=== PATIENT | female | born 1995 | race Caucasian/White ===

== ENCOUNTER 2020-04-02 23:26 | Day surgery (SDC) | payer BC, OTHER ==
[2020-04-02 23:51] VITALS: BP 108/58; TEMP 98.5; BMI 27.2
[2020-04-03] MEDS ORDERED: hydrALAZINE 20 MG/ML VIAL SLOW IVP PRN (00:02)
--- NOTE | 2020-04-03 00:26 | PDOC.BPN ---
- Brief Progress Note OBGYN oncall: H&P Dictated. Patient seen by me at bedside. Patient in NAD. Sterile spec exam (SSE) explained by me. SSE performed without gel: No evidence of ROM. Valsalva and coufgh test both neg. Findings: Thick white adherent vag dsch C/W yeast. VP3 collected. Results back tomorrow. There is also a small inclusion cyst at intritus at 6 OClock...1cm, nt. I do not suspect ROM. This was discussed with her. I suspect vaginal yeast. This will be followed up tomorrow at her scheduled appt with Dr Geiger, to check VP3 results and RX then. NST reactive.
[2020-04-03 00:32] LABS: Amnisure Test No Membranes Rupture (No Rupture)
[2020-04-03 00:33] LABS: Amnisure Internal Control QC ACCEPTABLE (ACCEPTABLE)
--- NOTE | 2020-04-03 00:48 | HP ---
It is 0004 time of evaluation. Time of initial evaluation was 2354. LOCATION: Triage A. CHIEF COMPLAINT: Possible leakage of fluid/transfer from [facility]. HISTORY OF PRESENT ILLNESS: This is a 24-year-old, G2, P1, at 30 weeks and 1 day by an EDC of 06/10 with possible leakage of fluid at around 2039, which is why she went to [facility]. She is a patient of Dr. Geiger. She states that she had one small gush of fluid, but was unable to tell if she continues leaking at the other hospital. I did receive a phone call from the initial provider who was Dr. Santos at [facility], who checked her and called her "closed" and thought that she may be ruptured. She was sent here for evaluation. REVIEW OF SYSTEMS: GENERAL: No sick contacts. No fevers or chills. RESPIRATORY: No shortness of breath. CARDIOVASCULAR: No chest pain. GI: No constipation or diarrhea. EXTREMITIES: No lower extremity unusual edema or pain. PAST OBSTETRICAL HISTORY: She is a G2, P1, with a history of an appendectomy with her last , but she was able to deliver all the way at term. She had a vaginal . PAST MEDICAL HISTORY: History of seizure disorder for which she takes medication. MEDICATIONS: Include Keppra b.i.d. and vitamins. SURGICAL HISTORY: Appendectomy with previous , and tonsils and adenoids. SOCIAL HISTORY: Negative for alcohol, tobacco, and drug use. PHYSICAL EXAMINATION: VITAL SIGNS: Show blood pressure of 108/58, pulse of 96, temperature 98.5, respirations are 18 and nonlabored. GENERAL: No acute distress. ABDOMEN: Gravid, soft, and nontender. Abdomen is gravid and appears size consistent with dates. PELVIC: No gross evidence of vaginal bleeding on the perineum. Sterile spec examination is pending. monitor, heart tones are seen on the strip. The heart tones are about 130s to 140s baseline and there are accelerations and moderate variability. There is no real contractions on tocodynamometer, but there is a little bit of irritability. The heart tracing is reactive. INTERVENTIONS ORDERED: I have ordered an AmniSure and a sterile spec examination, which I am about to do. ASSESSMENT: A 24-year-old, G2, P1, with possible pre labor, rupture of membranes. PLAN: 1. Sterile spec examination. 2. AmniSure being collected as I dictate this. 3. If she is ruptured, we will begin antibiotics for latency, steroids for lung maturity, and magnesium sulfate for neuroprotection if labor is evident. 4. We will also collect a GBS swab if there is evidence of rupture. 5. If the examination is otherwise negative, then we will observe her here in Labor and Delivery for about an hour and then discharge her home if the evaluation is negative for pre labor, rupture of membranes. Job ID: [id number]
== END 2020-04-03 00:55 | disposition home or self-care (01) ==
LOC: L&D/OP 23:26
PROVIDERS: ATTEND Obstetrics & Gynecology
DX: O42.913 Preterm premature rupture of membranes, unspecified as to length of time between rupture and onset of labor, third trimester (principal); O23.593 Infection of other part of genital tract in pregnancy, third trimester; B96.89 Other specified bacterial agents as the cause of diseases classified elsewhere; O99.353 Diseases of the nervous system complicating pregnancy, third trimester; G40.909 Epilepsy, unspecified, not intractable, without status epilepticus; Z3A.30 30 weeks gestation of pregnancy; Z79.899 Other long term (current) drug therapy; Z88.0 Allergy status to penicillin
CPT/HCPCS: 84112; 87480; 87510; 87660; 99284